=== PATIENT | male | born 1945 | race Caucasian/White ===

== ENCOUNTER 2018-12-26 10:04 | Outpatient (CLI) | payer OTHER | END 2018-12-26 10:13 | disposition home or self-care (01) | LOC: TOM 10:04 | DX: N13.1 Hydronephrosis with ureteral stricture, not elsewhere classified (principal) ==

== ENCOUNTER → 2019-01-15 10:18 | Outpatient (CLI) | payer OTHER ==
[~2019-01-15 10:18] MED LIST: CARVEDILOL6.25 MG PO; HYZAAR 100-251 EACH PO
== END | disposition home or self-care (01) ==
LOC: LAB 10:18
DX: C67.9 Malignant neoplasm of bladder, unspecified (principal)